=== PATIENT | female | born 1955 | race African-American/Black ===

== ENCOUNTER 2021-04-23 11:21 | Inpatient (IN) | payer MEDICARE, MEDICAID ==
[~2021-04-23] VITALS: Ht 167.6 cm; Wt 115.8 kg
[~2021-04-23 11:21] MED LIST: APIX5TAB PO; BENA10TA74 PO; CIPR500S3 PO; DIPH25TA23 MT; FURO40TA5 MT; GABA-532 MT; METH-773 MT; OMEP40CA12 MT; POTA8TAB4 MT; SILD20TA PO; SIMV-46 PO; SITA50TA3 PO
[2021-04-23] MEDS ORDERED: ACETAMINOPHEN 325MG TABLET PO STA (12:04)
[2021-04-23] MEDS ORDERED: SODIUM CHLORIDE 0.9% 1,000 ML IV ONE ×2 (12:15→15:30)
[2021-04-23 12:38] LABS: HEMATOCRIT. 29.3 % (36.0-48.0); MEAN CORPUSCULAR HEMOGLOBIN 25.4 pg (28.0-32.0); MEAN CORPUSCULAR VOLUME 82.4 fL (81.0-99.0); MEAN PLATELET VOLUME 7.9 fl (7.4-10.4); PLATELET 529 x1000/uL (130-400); RED BLOOD CELL COUNT 3.55 mill/uL (4.2-5.4); RED CELL DISTRIBUTION WIDTH 18.7 % (11.6-14.6)
[2021-04-23 12:47] LABS: CHLORIDE 105 mEq/L (98-107)
[2021-04-23 13:04] LABS: PLATELET ESTIMATE INCREASED
[2021-04-23] MEDS ORDERED: LEVOFLOXACIN 750MG PREMIX 150 ML IV ONE (13:30)
[2021-04-23] MEDS ORDERED: PANTOPRAZOLE SODIUM 40 MG/VIAL IV ONE (13:30)
[2021-04-23] MEDS ORDERED: VANCOMYCIN 1 G PREMIX 200 ML IV SCH (14:30)
[2021-04-23 16:23] LABS: CLARITY URINE TURBID (CLEAR); COLOR URINE RED (YELLOW); KETONES URINE NEGATIVE (NEGATIVE); LEUKOCYTE ESTERASE URINE 2+ (NEGATIVE); NITRITE URINE POSITIVE (NEGATIVE); OCCULT BLOOD URINE 2+ (NEGATIVE); PROTEIN URINE 2+ (NEGATIVE); SPECIFIC GRAVITY URINE 1.027 (1.005-1.030); UROBILINOGEN URINE 0.2 E.U./dL (0.2-1.0)
[2021-04-23 19:01] VITALS: BP 99/56
[2021-04-23 20:00] VITALS: BP 98/65
[2021-04-23] MEDS ORDERED: ONDANSETRON HCL 4MG/2ML INJ IV PRN (21:00)
[2021-04-23] MEDS ORDERED: DEXTROSE 50% WATER 50ML SYRINGE IV PRN (21:15)
[2021-04-23] MEDS: SODIUM CHLORIDE 0.45% 1,000 ML IV SCH (23:34)
[2021-04-23] MEDS: VANCOMYCIN 1250MG in DEXTROSE 5% WATER 250ML IV SCH (23:34)
[2021-04-24] VITALS: BP 91/67
[2021-04-24 04:00] VITALS: BP 91/64
[2021-04-24] MEDS ORDERED: MAGNESIUM 2 G PREMIX 50 ML IV NR (06:00)
[2021-04-24 07:30] LABS: CHLORIDE 105 mEq/L (98-107)
[2021-04-24 07:32] LABS: HEMATOCRIT. 26.6 % (36.0-48.0); MEAN CORPUSCULAR HEMOGLOBIN 25.7 pg (28.0-32.0); MEAN CORPUSCULAR VOLUME 85.3 fL (81.0-99.0); MEAN PLATELET VOLUME 8.1 fl (7.4-10.4); PLATELET 403 x1000/uL (130-400); RED BLOOD CELL COUNT 3.12 mill/uL (4.2-5.4)
[2021-04-24] MEDS: BLOOD SUGAR DIAGNOSTIC STRIP TEST SCH ×4 (07:40→20:42)
[2021-04-24 08:00] VITALS: BP 91/64
[2021-04-24] MEDS: IPRATROPIUM/ALBUTEROL 0.5-3(2.5)MG/3ML NEB HHN SCH ×4 (08:00→21:00)
[2021-04-24] MEDS: INSULIN LISPRO 100 UNITS/ML SUBCUT SCH ×4 (08:10→20:42)
[2021-04-24 11:40] LABS: INR 1.4; PROTHROMBIN TIME 14.8 sec (9.6-11.0)
[2021-04-24 12:00] VITALS: BP 109/58
[2021-04-24] MEDS ORDERED: MAGNESIUM 4 G PREMIX 100 ML IV NR (12:00)
[2021-04-24] MEDS: GABAPENTIN 300MG CAPSULE PO SCH ×2 (12:16→16:14)
[2021-04-24] MEDS: OMEPRAZOLE 20MG CAPSULE EXTENDED RELEASE PO SCH (12:16)
[2021-04-24] MEDS: SODIUM CHLORIDE 0.45% 1,000 ML IV SCH (12:17)
[2021-04-24] MEDS ORDERED: LEVOFLOXACIN 750MG PREMIX 150 ML IV SCH (14:00)
[2021-04-24] MEDS ORDERED: MAGNESIUM 2 G PREMIX 50 ML IV SCH (15:00)
[2021-04-24 16:00] VITALS: BP 99/60
[2021-04-24] MEDS: SILDENAFIL CITRATE 20MG TABLET PO SCH (16:20)
[2021-04-24 17:38] LABS: PLATELET ESTIMATE INCREASED
[2021-04-24] MEDS: VANCOMYCIN 1250MG in DEXTROSE 5% WATER 250ML IV SCH (17:53)
[2021-04-24 20:00] VITALS: BP 78/46
[2021-04-24] MEDS ORDERED: IOHEXOL-300 100 ML BOTTLE ONE (20:11)
[2021-04-24] MEDS: ATORVASTATIN CALCIUM 40MG TABLET PO SCH (20:42)
[2021-04-25] VITALS: BP 105/50
[2021-04-25] MEDS: IPRATROPIUM/ALBUTEROL 0.5-3(2.5)MG/3ML NEB HHN SCH ×6 (00:52→20:40)
[2021-04-25 04:00] VITALS: BP 92/52
[2021-04-25] MEDS ORDERED: AZTREONAM 2 GM in DEXT 5% WATER 100 ML IV SCH (04:00)
[2021-04-25] MEDS ORDERED: AMIKACIN 500MG in SODIUM CHLORIDE 0.9% 100ML IV NR (05:00)
[2021-04-25] MEDS: BLOOD SUGAR DIAGNOSTIC STRIP TEST SCH ×4 (06:24→21:16)
[2021-04-25] MEDS: INSULIN LISPRO 100 UNITS/ML SUBCUT SCH ×4 (06:24→22:00)
[2021-04-25 06:25] LABS: CHLORIDE 104 mEq/L (98-107)
[2021-04-25 06:29] LABS: HEMATOCRIT. 25.6 % (36.0-48.0); HEMOGLOBIN. 8.1 g/dL (12.0-16.0); MEAN CORPUSCULAR HEMOGLOBIN 26.4 pg (28.0-32.0); MEAN CORPUSCULAR VOLUME 83.8 fL (81.0-99.0); MEAN PLATELET VOLUME 8.3 fl (7.4-10.4); PLATELET 367 x1000/uL (130-400); RED BLOOD CELL COUNT 3.05 mill/uL (4.2-5.4); RED CELL DISTRIBUTION WIDTH 18.3 % (11.6-14.6)
[2021-04-25] MEDS: OMEPRAZOLE 20MG CAPSULE EXTENDED RELEASE PO SCH (06:34)
[2021-04-25 06:40] LABS: TOTAL IRON BINDING CAPACITY 179 ug/dL (250-450)
[2021-04-25 06:44] LABS: FOLIC ACID (FOLATE) SERUM 9.4 ng/mL (>5.38)
[2021-04-25 08:00] VITALS: BP 116/70
[2021-04-25] MEDS: GABAPENTIN 300MG CAPSULE PO SCH ×3 (08:29→17:01)
[2021-04-25] MEDS: SILDENAFIL CITRATE 20MG TABLET PO SCH ×2 (08:30→17:00)
[2021-04-25 12:00] VITALS: BP 121/69
[2021-04-25 13:29] LABS: PLATELET ESTIMATE NORMAL
[2021-04-25 16:00] VITALS: BP 94/50
[2021-04-25 20:00] VITALS: BP 97/54
[2021-04-25] MEDS: ATORVASTATIN CALCIUM 40MG TABLET PO SCH (21:12)
[2021-04-26] VITALS (19 sets, daily range): BP systolic 88–142; BP diastolic 49–86
[2021-04-26] MEDS: IPRATROPIUM/ALBUTEROL 0.5-3(2.5)MG/3ML NEB HHN SCH ×5 (00:29→16:55)
[2021-04-26] MEDS: SODIUM CHLORIDE 0.9% IV SCH ×2 (00:56→18:17)
[2021-04-26] MEDS: AMIKACIN SULFATE IV SCH ×2 (00:56→18:17)
[2021-04-26] MEDS: OMEPRAZOLE 20MG CAPSULE EXTENDED RELEASE PO SCH (05:29)
[2021-04-26] MEDS: ACETAMINOPHEN 325MG TABLET PO PRN ×3 (05:33→15:52)
[2021-04-26 06:10] LABS: BASOPHILS % 0.5 % (0.0-2.0); EOSINOPHILS % 1.5 % (0.0-5.0); HEMOGLOBIN. 8.1 g/dL (12.0-16.0); LYMPHOCYTES % 9.5 % (20.0-50.0); MEAN CORPUSCULAR HEMOGLOBIN 25.5 pg (28.0-32.0); MEAN CORPUSCULAR VOLUME 84.8 fL (81.0-99.0); MEAN PLATELET VOLUME 8.4 fl (7.4-10.4); MONOCYTES % 5.6 % (2.0-8.0); NEUTROPHILS % 82.9 % (40.0-76.0); PLATELET 330 x1000/uL (130-400); RED BLOOD CELL COUNT 3.18 mill/uL (4.2-5.4); RED CELL DISTRIBUTION WIDTH 18.9 % (11.6-14.6)
[2021-04-26] MEDS: BLOOD SUGAR DIAGNOSTIC STRIP TEST SCH ×4 (06:16→21:45)
[2021-04-26] MEDS: INSULIN LISPRO 100 UNITS/ML SUBCUT SCH ×4 (06:16→21:00)
[2021-04-26] MEDS: SILDENAFIL CITRATE 20MG TABLET PO SCH ×2 (08:55→17:00)
[2021-04-26] MEDS: GABAPENTIN 300MG CAPSULE PO SCH ×4 (09:00→17:31)
[2021-04-26] MEDS ORDERED: ACETAMINOPHEN 650MG SUPP PR NR (16:00)
[2021-04-26] MEDS ORDERED: SODIUM CHLORIDE 0.9% 1,000 ML IV SCH (17:30)
[2021-04-26] MEDS ORDERED: FENTANYL CITRATE/PF 50MCG/ML 2ML VIAL ONE (19:33)
[2021-04-26] MEDS ORDERED: MIDAZOLAM HCL 2 MG/2 ML VIAL ONE (19:33)
[2021-04-26] MEDS ORDERED: PROPOFOL 200MG/20ML VIAL IV ONE (19:42)
[2021-04-26] MEDS ORDERED: ROCURONIUM BROMIDE 10MG/ML VIAL 5ML IV ONE (19:54)
[2021-04-26] MEDS ORDERED: CLINDAMYCIN 900 MG PREMIX 50 ML IV ONE (20:01)
[2021-04-26] MEDS: ATORVASTATIN CALCIUM 40MG TABLET PO SCH (21:00)
[2021-04-26 21:16] LABS: BG BASE EXCESS 6.6 mmol/L (-2.0-2.0); BG CARBOXYHEMOGLOBIN 0.3 % (0.5-1.5); BG DEOXYHEMOGLOBIN 0.4 % (0.0-5.0); BG FRACTION INSPIRED OXYGEN 100; BG HCO3 ACT 33.8 mmol/L (22.0-26.0); BG METHEMOGLOBIN 0.3 % (0.0-1.5); BG OXYGEN SATURATION 99.6 % (92.0-98.5); BG PCO2 65.6 mmHg (35.0-45.0); BG PO2 295.4 mmHg (75.0-100.0); BG SAMPLE SITE LEFT BRACHIAL; BG TOTAL HEMOGLOBIN 9.2 g/dL (12.0-18.0); BG VENT MODE VENT - SIMV
[2021-04-26] MEDS ORDERED: FENTANYL CITRATE/PF 2,500 MCG in SODIUM CHLORIDE 0.9% 200 ML IV PRN (21:30)
[2021-04-26] MEDS: PROPOFOL 10MG/ML 100ML 100 ML IV PRN (21:56)
[2021-04-27] VITALS (62 sets, daily range): BP systolic 91–136; BP diastolic 49–87
[2021-04-27] MEDS: IPRATROPIUM/ALBUTEROL 0.5-3(2.5)MG/3ML NEB HHN SCH ×5 (00:05→16:13)
[2021-04-27] MEDS: PROPOFOL 10MG/ML 100ML 100 ML IV PRN (04:38)
[2021-04-27] MEDS: BLOOD SUGAR DIAGNOSTIC STRIP TEST SCH ×4 (05:44→20:37)
[2021-04-27 05:48] LABS: BASOPHILS % 0.6 % (0.0-2.0); EOSINOPHILS % 1.3 % (0.0-5.0); HEMOGLOBIN. 8.1 g/dL (12.0-16.0); LYMPHOCYTES % 10.7 % (20.0-50.0); MEAN CORPUSCULAR VOLUME 82.9 fL (81.0-99.0); MEAN PLATELET VOLUME 8.7 fl (7.4-10.4); NEUTROPHILS % 82.4 % (40.0-76.0); PLATELET 307 x1000/uL (130-400); RED BLOOD CELL COUNT 3.26 mill/uL (4.2-5.4); RED CELL DISTRIBUTION WIDTH 19.1 % (11.6-14.6)
[2021-04-27] MEDS: OMEPRAZOLE 20MG CAPSULE EXTENDED RELEASE PO SCH (05:55)
[2021-04-27] MEDS: INSULIN LISPRO 100 UNITS/ML SUBCUT SCH ×4 (06:00→20:37)
[2021-04-27 07:11] LABS: BG BASE EXCESS 9.2 mmol/L (-2.0-2.0); BG CARBOXYHEMOGLOBIN 0.3 % (0.5-1.5); BG DEOXYHEMOGLOBIN 1.6 % (0.0-5.0); BG HCO3 ACT 32.8 mmol/L (22.0-26.0); BG METHEMOGLOBIN 0.4 % (0.0-1.5); BG OXYGEN SATURATION 98.4 % (92.0-98.5); BG OXYHEMOGLOBIN 97.7 % (94.0-97.0); BG PCO2 40.7 mmHg (35.0-45.0); BG PH 7.524 (7.350-7.450); BG PO2 119.2 mmHg (75.0-100.0); BG SAMPLE SITE RIGHT RADIAL; BG VENT MODE VENT - AC
[2021-04-27] MEDS ORDERED: MORPHINE SULFATE 2 MG/ML CPJ (NOT FOR IM USE) IV PRN (11:30)
[2021-04-27] MEDS: GABAPENTIN 300MG CAPSULE PO SCH ×3 (13:00→17:00)
[2021-04-27 13:14] LABS: BG BASE EXCESS 6.8 mmol/L (-2.0-2.0); BG CARBOXYHEMOGLOBIN 0.3 % (0.5-1.5); BG DEOXYHEMOGLOBIN 2.2 % (0.0-5.0); BG FRACTION INSPIRED OXYGEN 40; BG HCO3 ACT 32.9 mmol/L (22.0-26.0); BG METHEMOGLOBIN 0.3 % (0.0-1.5); BG OXYGEN SATURATION 97.8 % (92.0-98.5); BG OXYHEMOGLOBIN 97.2 % (94.0-97.0); BG PCO2 55.8 mmHg (35.0-45.0); BG PH 7.388 (7.350-7.450); BG SAMPLE SITE RIGHT RADIAL; BG TOTAL HEMOGLOBIN 9.6 g/dL (12.0-18.0); BG VENT MODE VENT - CPAP
[2021-04-27] MEDS ORDERED: DOCUSATE SODIUM 100MG CAPSULE PO PRN (15:15)
[2021-04-27] MEDS: FERROUS SULFATE 325MG TABLET PO SCH (16:45)
[2021-04-27] MEDS: SILDENAFIL CITRATE 20MG TABLET PO SCH ×2 (16:45→17:00)
[2021-04-27] MEDS: SODIUM CHLORIDE 0.9% IV SCH (17:27)
[2021-04-27] MEDS: AMIKACIN SULFATE IV SCH (17:27)
[2021-04-27] MEDS: ATORVASTATIN CALCIUM 40MG TABLET PO SCH (20:36)
[2021-04-27] MEDS: ASCORBIC ACID 500 MG TABLET PO SCH (20:36)
[2021-04-27] MEDS: ACETAMINOPHEN 325MG TABLET PO PRN (23:54)
[2021-04-28] VITALS (40 sets, daily range): BP systolic 88–124; BP diastolic 48–70
[2021-04-28 05:32] LABS: CHLORIDE 105 mEq/L (98-107)
[2021-04-28 05:47] LABS: BASOPHILS % 0.4 % (0.0-2.0); EOSINOPHILS % 2.1 % (0.0-5.0); HEMATOCRIT. 27.2 % (36.0-48.0); HEMOGLOBIN. 8.2 g/dL (12.0-16.0); LYMPHOCYTES % 10.6 % (20.0-50.0); MEAN CORPUSCULAR HEMOGLOBIN 25.2 pg (28.0-32.0); MEAN CORPUSCULAR VOLUME 84.1 fL (81.0-99.0); MEAN PLATELET VOLUME 8.3 fl (7.4-10.4); MONOCYTES % 4.9 % (2.0-8.0); PLATELET 297 x1000/uL (130-400); RED BLOOD CELL COUNT 3.23 mill/uL (4.2-5.4); RED CELL DISTRIBUTION WIDTH 19.1 % (11.6-14.6)
[2021-04-28] MEDS: OMEPRAZOLE 20MG CAPSULE EXTENDED RELEASE PO SCH (06:25)
[2021-04-28] MEDS: INSULIN LISPRO 100 UNITS/ML SUBCUT SCH ×4 (06:26→21:00)
[2021-04-28] MEDS: BLOOD SUGAR DIAGNOSTIC STRIP TEST SCH ×4 (06:26→21:25)
[2021-04-28] MEDS: FERROUS SULFATE 325MG TABLET PO SCH ×3 (06:28→17:25)
[2021-04-28] MEDS: ASCORBIC ACID 500 MG TABLET PO SCH ×2 (07:56→20:57)
[2021-04-28] MEDS: GABAPENTIN 300MG CAPSULE PO SCH ×3 (07:56→17:25)
[2021-04-28] MEDS: SILDENAFIL CITRATE 20MG TABLET PO SCH ×2 (07:57→17:00)
[2021-04-28] MEDS: FUROSEMIDE 40MG TABLET PO SCH (11:25)
[2021-04-28] MEDS: SODIUM CHLORIDE 0.9% IV SCH (20:57)
[2021-04-28] MEDS: ATORVASTATIN CALCIUM 40MG TABLET PO SCH (20:57)
[2021-04-28] MEDS: AMIKACIN SULFATE IV SCH (20:57)
[2021-04-29] VITALS: BP 103/63
[2021-04-29 04:00] VITALS: BP 114/53
[2021-04-29] MEDS: OMEPRAZOLE 20MG CAPSULE EXTENDED RELEASE PO SCH (06:08)
[2021-04-29] MEDS: FERROUS SULFATE 325MG TABLET PO SCH (06:08)
[2021-04-29 06:21] LABS: CHLORIDE 104 mEq/L (98-107)
[2021-04-29 06:24] LABS: BASOPHILS % 0.5 % (0.0-2.0); HEMATOCRIT. 27.5 % (36.0-48.0); HEMOGLOBIN. 8.2 g/dL (12.0-16.0); LYMPHOCYTES % 11.9 % (20.0-50.0); MEAN CORPUSCULAR HEMOGLOBIN 25.6 pg (28.0-32.0); MEAN CORPUSCULAR VOLUME 85.5 fL (81.0-99.0); MEAN PLATELET VOLUME 8.3 fl (7.4-10.4); MONOCYTES % 4.3 % (2.0-8.0); NEUTROPHILS % 81.3 % (40.0-76.0); PLATELET 293 x1000/uL (130-400); RED BLOOD CELL COUNT 3.21 mill/uL (4.2-5.4); RED CELL DISTRIBUTION WIDTH 19.1 % (11.6-14.6)
[2021-04-29] MEDS: BLOOD SUGAR DIAGNOSTIC STRIP TEST SCH ×4 (06:34→20:44)
[2021-04-29 08:00] VITALS: BP 102/57
[2021-04-29] MEDS: SILDENAFIL CITRATE 20MG TABLET PO SCH ×2 (09:00→18:09)
[2021-04-29] MEDS: ASCORBIC ACID 500 MG TABLET PO SCH ×2 (09:35→20:48)
[2021-04-29] MEDS: GABAPENTIN 300MG CAPSULE PO SCH ×3 (09:35→18:10)
[2021-04-29] MEDS: FUROSEMIDE 40MG TABLET PO SCH (09:36)
[2021-04-29] MEDS: ACETAMINOPHEN 325MG TABLET PO PRN ×2 (09:55→16:31)
[2021-04-29 12:00] VITALS: BP 102/56
[2021-04-29] MEDS: INSULIN LISPRO 100 UNITS/ML SUBCUT SCH ×3 (12:00→20:44)
[2021-04-29] MEDS ORDERED: LIDOCAINE HCL 1% 20ML VIAL (Pyxis) INJ ONE (12:35)
[2021-04-29 16:00] VITALS: BP 100/74
[2021-04-29] MEDS: SODIUM CHLORIDE 0.9% IV SCH (18:09)
[2021-04-29] MEDS: AMIKACIN SULFATE IV SCH (18:09)
[2021-04-29 20:00] VITALS: BP 100/53
[2021-04-29] MEDS: ATORVASTATIN CALCIUM 40MG TABLET PO SCH (20:48)
[2021-04-30] VITALS: BP 105/54
[2021-04-30] MEDS: ACETAMINOPHEN 325MG TABLET PO PRN ×3 (00:14→18:52)
[2021-04-30 04:00] VITALS: BP 120/66
[2021-04-30] MEDS: BLOOD SUGAR DIAGNOSTIC STRIP TEST SCH ×3 (06:35→17:34)
[2021-04-30] MEDS: FERROUS SULFATE 325MG TABLET PO SCH ×5 (06:36→17:42)
[2021-04-30] MEDS: INSULIN LISPRO 100 UNITS/ML SUBCUT SCH ×3 (06:36→17:15)
[2021-04-30] MEDS: OMEPRAZOLE 20MG CAPSULE EXTENDED RELEASE PO SCH (06:36)
[2021-04-30 08:00] VITALS: BP 92/60
[2021-04-30] MEDS: SILDENAFIL CITRATE 20MG TABLET PO SCH ×3 (09:00→17:42)
[2021-04-30] MEDS: FUROSEMIDE 40MG TABLET PO SCH (10:03)
[2021-04-30] MEDS: GABAPENTIN 300MG CAPSULE PO SCH ×3 (10:03→17:42)
[2021-04-30] MEDS: ASCORBIC ACID 500 MG TABLET PO SCH (10:05)
[2021-04-30 12:00] VITALS: BP 105/57
[2021-04-30 16:00] VITALS: BP 90/49
[2021-04-30] MEDS: SODIUM CHLORIDE 0.9% IV SCH (17:42)
[2021-04-30] MEDS: AMIKACIN SULFATE IV SCH (17:42)
[2021-04-30 20:00] VITALS: BP 113/64
== END 2021-04-30 21:10 | DRG 871 ==
LOC: ER 12:27 → 7WST 15:24 → EDBEDREQTM 15:30 → EDBEDREQ 15:30 → EDBEDREQSVC 15:30 → ENRESERV 16:41 → 5WST 04-24 17:50 → MICUSO 04-26 20:35 → 5WST 04-28 18:42
PROVIDERS: ADMIT Internal Medicine; ATTEND Internal Medicine
PROC: 05HY33Z Insertion of Infusion Device into Upper Vein, Percutaneous Approach (ICD-10-PCS; 2021-04-19)
PROC: B54MZZA Ultrasonography of Right Upper Extremity Veins, Guidance (ICD-10-PCS; 2021-04-19)
PROC: 0UJDXZZ Inspection of Uterus and Cervix, External Approach (ICD-10-PCS; principal; 2021-04-26)
PROC: 0BH17EZ Insertion of Endotracheal Airway into Trachea, Via Natural or Artificial Opening (ICD-10-PCS; 2021-04-26)
PROC: 5A1935Z Respiratory Ventilation, Less than 24 Consecutive Hours (ICD-10-PCS; 2021-04-26)
DX: A41.51 Sepsis due to Escherichia coli [E. coli] (principal); J96.00 Acute respiratory failure, unspecified whether with hypoxia or hypercapnia; I50.33 Acute on chronic diastolic (congestive) heart failure; E43 Unspecified severe protein-calorie malnutrition; I42.0 Dilated cardiomyopathy; I48.20 Chronic atrial fibrillation, unspecified; N39.0 Urinary tract infection, site not specified; Z68.41 Body mass index [BMI] 40.0-44.9, adult; D68.9 Coagulation defect, unspecified; D64.9 Anemia, unspecified; E11.40 Type 2 diabetes mellitus with diabetic neuropathy, unspecified; E83.42 Hypomagnesemia; I11.0 Hypertensive heart disease with heart failure; N85.2 Hypertrophy of uterus; R31.9 Hematuria, unspecified; R80.9 Proteinuria, unspecified; D25.9 Leiomyoma of uterus, unspecified; F32.9 Major depressive disorder, single episode, unspecified; I36.1 Nonrheumatic tricuspid (valve) insufficiency; I34.0 Nonrheumatic mitral (valve) insufficiency; I27.21 Secondary pulmonary arterial hypertension; N95.0 Postmenopausal bleeding; E11.51 Type 2 diabetes mellitus with diabetic peripheral angiopathy without gangrene; E66.01 Morbid (severe) obesity due to excess calories; R65.20 Severe sepsis without septic shock; I27.81 Cor pulmonale (chronic); Z20.822 Contact with and (suspected) exposure to COVID-19; I70.202 Unspecified atherosclerosis of native arteries of extremities, left leg; J44.9 Chronic obstructive pulmonary disease, unspecified; Z79.01 Long term (current) use of anticoagulants; Z79.84 Long term (current) use of oral hypoglycemic drugs; Z82.49 Family history of ischemic heart disease and other diseases of the circulatory system; Z83.3 Family history of diabetes mellitus; Z88.0 Allergy status to penicillin; Z88.6 Allergy status to analgesic agent; Z79.2 Long term (current) use of antibiotics; Z79.899 Other long term (current) drug therapy; Z79.1 Long term (current) use of non-steroidal anti-inflammatories (NSAID); Z86.718 Personal history of other venous thrombosis and embolism; Z87.19 Personal history of other diseases of the digestive system; I50.810 Right heart failure, unspecified; Z86.79 Personal history of other diseases of the circulatory system
CPT/HCPCS: 36415; 36600; 71045; 71260; 74177; 76937; 80048; 80053; 80150; 80202; 81003; 82270; 82375; 82607; 82728; 82746; 82805; 82962; 83036; 83540; 83550; 83735; 83880; 84145; 84478; 84484; 85025; 86850; 86900; 87077; 87186; 93005; 93306; 93970; 94002; 94640; 97162; 97165; 99291; A6261; C1725; C9113; J0278; J1956; J2250; J2270; J2704; J3010; J3370; J3475; J3490; J7030; J7050; J7060; Q9967; U0003; U0005; A4315

== ENCOUNTER 2021-10-14 20:02 | Emergency (ER) | payer MEDICARE, MEDICAID ==
[~2021-10-14] VITALS: Ht 160 cm; Wt 105.0 kg
[~2021-10-14 20:02] MED LIST changes: -BENA10TA74 PO; -CIPR500S3 PO; -OMEP40CA12 MT; +OMEP40CA20 MT
[2021-10-14 21:55] LABS: BASOPHILS % 0.4 % (0.0-2.0); EOSINOPHILS % 1.7 % (0.0-5.0); HEMATOCRIT. 42.2 % (36.0-48.0); HEMOGLOBIN. 13.1 g/dL (12.0-16.0); MEAN CORPUSCULAR HEMOGLOBIN 25.2 pg (28.0-32.0); MEAN CORPUSCULAR VOLUME 81.1 fL (81.0-99.0); MONOCYTES % 4.3 % (2.0-8.0); NEUTROPHILS % 79.6 % (40.0-76.0); PLATELET 221 x1000/uL (130-400); RED BLOOD CELL COUNT 5.21 mill/uL (4.2-5.4); RED CELL DISTRIBUTION WIDTH 16.8 % (11.6-14.6)
[2021-10-14 22:00] LABS: CHLORIDE 105 mEq/L (98-107)
[2021-10-14 22:59] LABS: CLARITY URINE TURBID (CLEAR); COLOR URINE ORANGE (YELLOW); KETONES URINE NEGATIVE (NEGATIVE); LEUKOCYTE ESTERASE URINE 3+ (NEGATIVE); NITRITE URINE NEGATIVE (NEGATIVE); OCCULT BLOOD URINE 3+ (NEGATIVE); PROTEIN URINE 2+ (NEGATIVE); SPECIFIC GRAVITY URINE 1.021 (1.005-1.030)
[2021-10-15] MEDS ORDERED: NAPR375T5 MT (00:31)
[2021-10-15] MEDS ORDERED: NITR-87 MT (00:31)
[2021-10-15 04:12] VITALS: BP 149/83
== END 2021-10-15 04:13 ==
LOC: ER 20:02
DX: N93.9 Abnormal uterine and vaginal bleeding, unspecified (principal); I11.0 Hypertensive heart disease with heart failure; I50.9 Heart failure, unspecified; E11.9 Type 2 diabetes mellitus without complications; K21.9 Gastro-esophageal reflux disease without esophagitis; Z88.0 Allergy status to penicillin; Z88.6 Allergy status to analgesic agent; Z79.899 Other long term (current) drug therapy; Z98.890 Other specified postprocedural states
CPT/HCPCS: 36415; 76856; 80053; 81003; 85025; 86850; 86900; 99285